=== PATIENT | male | born 1980 | race African-American/Black ===

== ENCOUNTER 2020-10-03 21:18 | Inpatient (IN) | payer OTHER, SELFPAY ==
[~2020-10-03 21:18] MED LIST: Iopamidol-370 76% 500 ML 1 ML ONE
[2020-10-03] MEDS ORDERED: Boostrix 0.5 ML (Tdap) VIAL ONE (21:22)
[2020-10-03 21:38] LABS: #Basophils 0.1 thou/uL (0.0-0.2); #Eosinphils 0.5 thou/uL (0.0-0.7); #Lymphocytes 2.4 thou/uL (1.20-3.40); #Monocytes 0.9 thou/uL (0.11-0.59); #Neutrophils 4.1 thou/uL (1.40-6.50); %Basophils 1.7 % (0.0-1.0); %Lymphocytes 30.2 % (21.0-51.0); %Monocytes 10.9 % (0.0-10.0); %Neutrophils 51.3 % (42.0-75.0); Hemoglobin 14.3 g/dL (14.0-18.0); Mean Corpuscular HGB CONC 34.8 g/dL (32.0-36.0); Mean Corpuscular Hemoglobin 31.6 pg (27.0-31.0); Mean Corpuscular Volume 90.8 fL (78.0-98.0); Mean Platelet Volume 7.3 fL (7.4-10.4); Platelet Count 214 thou/uL (130-400); RBC Distribution Width 11.7 % (11.5-14.5); Red Blood Cell (RBC) Count 4.53 mill/uL (4.70-6.10); White Blood Cell (WBC) Count 7.9 thou/uL (4.8-10.8)
[2020-10-03] MEDS ORDERED: Morphine 4 MG/ML VIAL ONE (21:48)
[2020-10-03 21:51] LABS: PTT 27.8 sec (22.9-36.1); Prothrombin Time 13.2 sec (12.0-14.7)
[2020-10-03 21:51] LABS: ALT (SGPT) 20 U/L (8-55); AST (SGOT) 20 U/L (5-34); Albumin 4.3 g/dL (3.5-5.0); Alcohol Less than 10 mg/dL (Less than 10); Alkaline Phosphatase 107 U/L (40-110); Anion Gap 19 mmol/L (10-20); BUN (Urea Nitrogen) 12 mg/dL (8.9-20.6); Bilirubin, Total 0.4 mg/dL (0.2-1.2); Calc. Creatinine Clearance 0 mL/min (70-130); Calcium 8.9 mg/dL (7.8-10.44); Carbon Dioxide 19 mmol/L (22-29); Chloride 107 mmol/L (98-107); Globulin 2.6 g/dL (2.4-3.5); Glucose 88 mg/dL (70-105); Potassium 3.6 mmol/L (3.5-5.1); Protein, Total 6.9 g/dL (6.0-8.3); Sodium 141 mmol/L (136-145)
[2020-10-03] MEDS ORDERED: Lidocaine 1% w/Epinephrine 1:100K 20 ML VIAL ONE (21:53)
[2020-10-03 22:39] LABS: SARS-CoV-2 NAA Rapid Test Not Detected (NotDetected)
[2020-10-03] MEDS ORDERED: Dextrose 5% in Water 1,000 ML IV PRN (22:57)
[2020-10-03] MEDS ORDERED: hydrALAZINE 20 MG/ML VIAL SLOW IVP PRN (22:57)
[2020-10-03] MEDS ORDERED: Morphine 2 MG/ML VIAL SLOW IVP PRN ×2 (22:57→23:23)
[2020-10-03] MEDS ORDERED: Dextrose 50% Abboject 50 ML SYRINGE SLOW IVP PRN (22:57)
[2020-10-03] MEDS ORDERED: Ondansetron PF 4 MG/2 ML Vial IVP PRN (22:57)
[2020-10-03] MEDS ORDERED: Ibuprofen 600 MG TAB PO SCH (23:00)
[2020-10-03] MEDS ORDERED: traMADol HCl 50 MG TAB PO PRN (23:00)
[2020-10-03 23:06] LABS: Bacteria/HPF None Seen HPF (None Seen); Bilirubin Negative (Negative); Blood, Urine Negative (Negative); Clarity Clear (Clear); Glucose, Urine (Dipstick) Normal (Negative); Ketone, Urine Negative (Negative); Leukocyte Negative Leu/uL (Negative); Nitrite Negative (Negative); Protein, Urine (Dipstick) 200 mg/dL (Neg-Trace); RBC/HPF None Seen HPF (0-3); Squamous Epithelial 0-3 HPF (0-3); Urobilinogen Normal mg/dL (Less than 2); WBC/HPF 0-3 HPF (0-3); pH, Urine 5.5 (5.0-9.0)
[2020-10-03 23:10] LABS: Hemoglobin 13.7 g/dL (14.0-18.0)
[2020-10-03 23:15] LABS: Specific Gravity, Urine 1.057 (1.002-1.036)
[2020-10-03] MEDS ORDERED: traMADol HCl 50 MG TAB ONE (23:18)
[2020-10-03] MEDS ORDERED: Acetaminophen 500 MG TAB ONE (23:19)
[2020-10-04] MEDS ORDERED: Morphine 2 MG/ML VIAL SLOW IVP PRN (00:02)
[2020-10-04 00:30] VITALS: BMI 34.5
[2020-10-04] MEDS: Lactated Ringer's 1,000 ML IV SCH ×2 (00:30→08:15)
[2020-10-04] MEDS: Acetaminophen 325 MG TAB PO SCH ×5 (01:16→23:03)
[2020-10-04] MEDS: traMADol HCl 50 MG TAB PO SCH ×5 (01:17→23:04)
[2020-10-04 01:30] LABS: Lactic Acid 2.5 mmol/L (0.5-2.2)
[2020-10-04 03:30] LABS: #Eosinphils 0.1 thou/uL (0.0-0.7); #Monocytes 0.5 thou/uL (0.11-0.59); #Neutrophils 10.8 thou/uL (1.40-6.50); %Basophils 0.2 % (0.0-1.0); %Eosinophils 0.5 % (0.0-10.0); %Lymphocytes 7.7 % (21.0-51.0); %Monocytes 3.7 % (0.0-10.0); Hemoglobin 14.1 g/dL (14.0-18.0); Mean Corpuscular HGB CONC 34.8 g/dL (32.0-36.0); Mean Corpuscular Hemoglobin 31.8 pg (27.0-31.0); Mean Corpuscular Volume 91.5 fL (78.0-98.0); Mean Platelet Volume 7.4 fL (7.4-10.4); Platelet Count 192 thou/uL (130-400); RBC Distribution Width 11.8 % (11.5-14.5); Red Blood Cell (RBC) Count 4.43 mill/uL (4.70-6.10); White Blood Cell (WBC) Count 12.3 thou/uL (4.8-10.8)
[2020-10-04 03:47] LABS: Lactic Acid 1.2 mmol/L (0.5-2.2)
[2020-10-04 03:50] LABS: Anion Gap 12 mmol/L (10-20); BUN (Urea Nitrogen) 9 mg/dL (8.9-20.6); Calc. Creatinine Clearance 182 mL/min (70-130); Calcium 8.8 mg/dL (7.8-10.44); Carbon Dioxide 19 mmol/L (22-29); Chloride 106 mmol/L (98-107); Glucose 134 mg/dL (70-105); Sodium 133 mmol/L (136-145)
[2020-10-04] MEDS ORDERED: Cyclobenzaprine 10 MG TAB PO PRN (06:17)
[2020-10-04] MEDS: Gabapentin 300 MG CAP PO SCH ×3 (08:07→20:10)
[2020-10-04] MEDS: Multivitamin W/ Minerals 1 TAB PO SCH (08:07)
[2020-10-04] MEDS: Senokot S 8.6-50 MG TAB PO SCH ×2 (08:07→20:10)
[2020-10-04] MEDS: Polyethylene Glycol 3350 17 GM Packet PO SCH (08:07)
[2020-10-04] MEDS ORDERED: Ondansetron ODT 4 MG TAB PO PRN (08:26)
[2020-10-04] MEDS: Famotidine 20 MG TAB PO SCH ×2 (08:59→20:10)
[2020-10-04] MEDS ORDERED: Famotidine/PF 20 mg/2ml Vial SLOW IVP SCH (09:00)
[2020-10-04 11:27] LABS: Hemoglobin 13.4 g/dL (14.0-18.0)
[2020-10-04 17:21] LABS: Hemoglobin 12.6 g/dL (14.0-18.0)
[2020-10-05 00:20] VITALS: TEMP 98.2
[2020-10-05] MEDS: Acetaminophen 325 MG TAB PO SCH ×2 (05:08→11:08)
[2020-10-05] MEDS: traMADol HCl 50 MG TAB PO SCH ×2 (05:09→11:09)
[2020-10-05] MEDS: Multivitamin W/ Minerals 1 TAB PO SCH (08:38)
[2020-10-05] MEDS: Senokot S 8.6-50 MG TAB PO SCH (08:38)
[2020-10-05] MEDS: Gabapentin 300 MG CAP PO SCH (08:38)
[2020-10-05] MEDS: Polyethylene Glycol 3350 17 GM Packet PO SCH (08:38)
[2020-10-05] MEDS: Famotidine 20 MG TAB PO SCH (08:39)
[2020-10-05 11:18] VITALS: BP 148/87
== END 2020-10-05 13:12 | disposition home or self-care (01) | DRG 605 ==
LOC: ERS 21:18 → CCU 23:01 → EEVIPCON 23:01 → SURG A 10-04 09:08
PROVIDERS: ADMIT Specialist; ATTEND Specialist
PROC: 0HQ7XZZ Repair Abdomen Skin, External Approach (ICD-10-PCS; principal; 2020-10-05)
DX: S31.110A Laceration without foreign body of abdominal wall, right upper quadrant without penetration into peritoneal cavity, initial encounter (principal); I10 Essential (primary) hypertension; W26.0XXA Contact with knife, initial encounter; Z20.822 Contact with and (suspected) exposure to COVID-19; S36.119A Unspecified injury of liver, initial encounter; Z90.49 Acquired absence of other specified parts of digestive tract; Z88.8 Allergy status to other drugs, medicaments and biological substances
CPT/HCPCS: 36415; 51702; 71045; 71260; 74177; 80048; 80053; 80307; 81003; 81015; 83605; 85025; 85610; 85730; 86850; 86900; 86901; 90471; 90715; 93005; 94760; 96365; 96374; G0390; J0360; J0690; J2270; Q9967; S0028; U0002; U0005